=== PATIENT | female | born 1975 | race Caucasian/White ===

== ENCOUNTER 2019-03-18 20:51 | Emergency (ER) | payer OTHER ==
[~2019-03-18] VITALS: Ht 152.4 cm; Wt 97.5 kg
[2019-03-18] MEDS ORDERED: ZYRTEC10 M5 PO (20:59)
[2019-03-18] MEDS ORDERED: NEOMYC-POLYM-D3.5 GM OPHTHALMIC (21:24)
[2019-03-18 21:26] VITALS: BP 130/76
== END 2019-03-18 21:29 | disposition home or self-care (01) ==
LOC: ER 20:51
DX: L23.7 Allergic contact dermatitis due to plants, except food (principal)